=== PATIENT | male | born 1940 | race Caucasian/White ===

== ENCOUNTER → 2018-05-28 | Outpatient (CLI) | payer MEDICARE, OTHER | LOC: ZCOL.LAB 18:06 | DX: Z01.818 Encounter for other preprocedural examination (principal); Z86.14 Personal history of Methicillin resistant Staphylococcus aureus infection ==

== ENCOUNTER → 2018-07-01 | Outpatient (CLI) | payer MEDICARE, OTHER | LOC: COL.LAB 11:54 | DX: Z01.812 Encounter for preprocedural laboratory examination (principal) ==